=== PATIENT | male | born 1940 | race African-American/Black ===

== ENCOUNTER 2020-09-10 19:09 | Emergency (ER) | payer MEDICARE, BC ==
[~2020-09-10] VITALS: Ht 185.4 cm; Wt 93.0 kg
--- NOTE | 2020-09-10 20:57 | NUR ---
PT PRESENTS TO THE ED WITH DIZZINESS AND STOMACH PAIN. PT STATED THAT THE STOMACH PAIN STARTED AND HE TOOK A ZANTAC AND IT WAS RESOLVED BY THE TIME HE GOT TO THE LOBBY. PT STATES THAT THE DIZZINESS HAS BEEN HAPPENING ON AND OFF FOR A FEW WEEKS. PT PLACED ON CONTINUOUS MONITORING, RESTING ON GURNEY, AND PLACED IN A GOWN.
--- NOTE | 2020-09-10 21:10 | NUR ---
PT WALKED TO THE BATHROOM FOR UA SAMPLE, UA SENT TO LAB
[2020-09-10 21:33] LABS: MICROSCOPIC NOT IND
[2020-09-10 21:43] LABS: BASOPHILS % (AUTO) 0 % (0-1); EOSINOPHILS % (AUTO) 4 % (1-7); LYMPHOCYTES % (AUTO) 21 % (22-44); MEAN CORPUSCULAR HEMOGLOBIN 34.2 pg (27.5-34.5); MEAN CORPUSCULAR HGB CONC 34.1 g/dL (33.2-36.2); MEAN PLATELET VOLUME 7.8 fL (7.4-10.4); MONOCYTES % (AUTO) 9 % (2-9); NEUTROPHILS % (AUTO) 66 % (42-75); PLATELET COUNT 190 x10^3/uL (130-400); RED BLOOD COUNT 4.39 x10^6/uL (4.38-5.82); RED CELL DISTRIBUTION WIDTH 13.8 % (9.4-14.8)
[2020-09-10 21:53] LABS: ALANINE AMINOTRANSFERASE 34 U/L (12-78); ALBUMIN 3.7 g/dL (3.4-5.0); ANION GAP 10 mmol/L (5-15); CALCIUM 8.5 mg/dL (8.5-10.1); CHLORIDE 103 mmol/L (98-107); CREATININE 1.27 mg/dL (0.7-1.3)
[2020-09-10 21:57] LABS: ALKALINE PHOSPHATASE 77 U/L (45-117); BILIRUBIN,TOTAL 0.9 mg/dL (0.2-1.0); TOTAL PROTEIN 7.3 g/dL (6.4-8.2); TROPONIN I < 0.015 ng/mL (0.000-0.045)
[2020-09-10 22:47] VITALS: BP 146/74
--- NOTE | 2020-09-10 22:47 | NUR ---
PT WALKED AROUND THE DEPARTMENT, PT STATED HE DID NOT FEEL DIZZY AT ALL DURING THE WALK. VITALS TAKEN AFTER AND CHARGED.
--- NOTE | 2020-09-10 23:25 | NUR ---
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 patient discharged with instruction. verbalized understanding.
== END 2020-09-10 23:35 | disposition home or self-care (01) ==
LOC: ED 22:38
DX: K29.00 Acute gastritis without bleeding (principal); R42 Dizziness and giddiness; R10.84 Generalized abdominal pain; R94.31 Abnormal electrocardiogram [ECG] [EKG]; I10 Essential (primary) hypertension; K21.9 Gastro-esophageal reflux disease without esophagitis
CPT/HCPCS: 36415; 71045; 80053; 81003; 84484; 85025; 93005; 99285